=== PATIENT | female | born 1955 | race Caucasian/White ===

== ENCOUNTER → 2017-07-14 | Day surgery (SDC) | payer MEDICARE ==
[2017-07-11 11:25] LABS: BASOPHILS % 0.3 % (0.0-1.0); EOSINOPHILS # (AUTO) 0.2 (0.0-0.4); EOSINOPHILS % 3.3 % (0.0-6.0); HEMATOCRIT 39.9 % (34.2-44.1); HEMOGLOBIN 12.7 g/dL (12.0-16.0); LYMPHOCYTES # (AUTO) 1.8 (1.0-3.2); LYMPHOCYTES % 30.3 % (18.0-39.1); MEAN CORPUSCULAR HEMOGLOBIN 29.9 pg (28-32); MEAN CORPUSCULAR HGB CONC 31.8 g/dL (31-35); MEAN CORPUSCULAR VOLUME 93.9 fL (81-99); MONOCYTES # (AUTO) 0.5 (0.2-0.8); MONOCYTES % 7.9 % (4.4-11.3); NEUTROPHILS # (AUTO) 3.4 (2.1-6.9); NEUTROPHILS % 57.9 % (38.7-80.0); PLATELET COUNT 186 x10e3/uL (140-360); RED BLOOD COUNT 4.25 x10e6/uL (3.6-5.1); RED CELL DISTRIBUTION WIDTH 14.3 % (11.7-14.4)
[2017-07-11 11:42] LABS: ANION GAP 14.6 mmol/L (8-16); CALCIUM 9.3 mg/dL (8.4-10.2); CREATININE, SERUM 1.63 mg/dL (0.57-1.11); POTASSIUM 3.6 mmol/L (3.5-5.1)
--- NOTE | 2017-07-11 12:54 | Diagnostic Imaging Report ---
PROCEDURE: Frontal and lateral views of the chest. COMPARISON: Patients [facility], , CHEST 2 VIEWS, 05/30/2016, 10:15. INDICATIONS: PREOPERATIVE FOR EGD FINDINGS: Lines/tubes: Stable left upper chest Port-A-Cath with distal tip projecting at the cavoatrial junction.. Lungs: The lungs are well inflated and clear. There is no evidence of pneumonia or pulmonary edema. Pleura: There is no pleural effusion or pneumothorax. Stable eventration of the right hemidiaphragm. Heart and mediastinum: The heart and the mediastinum are normal. Bones: No acute bony abnormality. IMPRESSION: 1. No acute cardiopulmonary abnormalities. Garcia Suazo M.D. Dictated by: Garcia Suazo M.D. on 07/11/2017 at 13:03 Electronically approved by: Garcia Suazo M.D. on 07/11/2017 at 13:03
[~2017-07-14] MED LIST: ALLOPURINOL300 MG PO; AMITRIPTYLINE H50 MG PO; CALCITRIOL0.5 MCG PO; CALCIUM600 MG PO; CARAFATE1 GM PO; CARBIDOPA-LEVO1 EACH PO; CHANTIX1 MG PO; CLOPIDOGREL75 MG PO; CRESTOR20 MG PO; CYMBALTA30 MG; FENTANYL CITRATE/PF 100MCG/2 ML INJ ONE; FISH OIL500 M1 PO; FOLIC ACID-VIT1 EAC1 PO; FUROSEMIDE40 MG PO; KLOR-CON 1010 MEQ PO; LEVEMIR100 UNIT/1 SC; LEVOTHYROXINE100 MCG PO; LIDOCAINE HCL 2% LOCAL INJ 5 ML SDV VIAL INJ ONE; MAG-OXIDE400 MG PO; METOLAZONE2.5 MG PO; MIDAZOLAM HCL 2 MG/2 ML VIAL ONE; MIDODRINE HCL2.5 MG PO; MULTIVITAMINS1 EAC7 PO; NEXIUM40 MG PO; NOVOLIN R100 UNIT/1 SC; OLANZAPINE5 MG PO; PLAVIX75 MG PO; POTASSIUM CITR10 MEQ PO; PRIMIDONE50 MG PO; PROPOFOL IV EMULSION 10 MG/ML 20 ML VIAL ONE; SEROQUEL25 MG PO; SIMPONI50 MG/0.1 IM; SODIUM BICARBO650 MG PO; SUMATRIPTAN SUC50 MG PO; TIZANIDINE HCL4 MG PO; TRAZODONE HCL50 MG PO; VITAMIN D1000 UNI1 PO
== END | disposition home or self-care (01) ==
LOC: OR 07:27
PROVIDERS: ATTEND Surgery
DX: K29.70 Gastritis, unspecified, without bleeding (principal); K21.0 Gastro-esophageal reflux disease with esophagitis; K25.9 Gastric ulcer, unspecified as acute or chronic, without hemorrhage or perforation; Z98.84 Bariatric surgery status; K44.9 Diaphragmatic hernia without obstruction or gangrene; E66.9 Obesity, unspecified; M06.9 Rheumatoid arthritis, unspecified; M19.90 Unspecified osteoarthritis, unspecified site; E03.9 Hypothyroidism, unspecified; R00.1 Bradycardia, unspecified; E11.22 Type 2 diabetes mellitus with diabetic chronic kidney disease; I12.9 Hypertensive chronic kidney disease with stage 1 through stage 4 chronic kidney disease, or unspecified chronic kidney disease; N18.9 Chronic kidney disease, unspecified; F31.9 Bipolar disorder, unspecified; F41.9 Anxiety disorder, unspecified; Z01.810 Encounter for preprocedural cardiovascular examination; Z01.812 Encounter for preprocedural laboratory examination; Z01.818 Encounter for other preprocedural examination; Z79.02 Long term (current) use of antithrombotics/antiplatelets; Z79.4 Long term (current) use of insulin; Z86.73 Personal history of transient ischemic attack (TIA), and cerebral infarction without residual deficits
CPT/HCPCS: 36415 ×2; 43235; 71046; 80048; 82948; 85025; 93005; J2001; J2250

== ENCOUNTER → 2017-12-16 | Outpatient (CLI) | payer MEDICARE, OTHER ==
[~2017-12-16] MED LIST changes: -FENTANYL CITRATE/PF 100MCG/2 ML INJ ONE; -LIDOCAINE HCL 2% LOCAL INJ 5 ML SDV VIAL INJ ONE; -MIDAZOLAM HCL 2 MG/2 ML VIAL ONE; -PROPOFOL IV EMULSION 10 MG/ML 20 ML VIAL ONE
--- NOTE | 2017-12-16 08:04 | Diagnostic Imaging Report ---
PROCEDURE:ABDOMINAL ULTRASOUND COMPARISON:04/05/2017, CT abdomen and pelvis without contrast 04/06/2017. INDICATIONS:Abdomen Pain FINDINGS: Liver: 15.3 cm in length in the right midclavicular line. Normal hepatic parenchymal echogenicity. No focal mass. Main portal vein: 0.9 cm in caliber. Hepatopedal flow. Gallbladder: Surgically removed. Common Bile Duct: 0.4 cm in caliber. No echogenic filling defect. Right kidney: 8.7 cm in length. No solid or cystic mass, echogenic calculi, or hydronephrosis. Increased renal cortical echogenicity. Left kidney: 9.3 cm in length. No solid or cystic mass, echogenic calculi, or hydronephrosis. Increased renal cortical echogenicity. Spleen: 11.3 cm in length. Uniform parenchymal echotexture. Pancreas: The visualized portions of the pancreas are normal. Inferior vena cava: Patent. Aorta: Non-aneurysmal. Ascites: None. CONCLUSION: Status post cholecystectomy. Increased renal cortical echogenicity compatible with medical renal disease. Dictated by: Neo Salmon M.D. on 12/16/2017 at 8:08 Electronically approved by: Neo Salmon M.D. on 12/16/2017 at 8:08
== END ==
LOC: US 07:06
PROVIDERS: ATTEND Internal Medicine
DX: R10.9 Unspecified abdominal pain (principal)
CPT/HCPCS: 76700

== ENCOUNTER → 2018-10-26 | Outpatient (CLI) | payer MEDICARE ==
--- NOTE | 2018-10-26 10:06 | Diagnostic Imaging Report ---
EXAMINATION: MRI of the brain without contrast. HISTORY: Migraine headaches, diabetes, Parkinson's disease, bipolar, prior strokes COMPARISON: Head CT 01/24/2017 TECHNIQUE: Sagittal T2; axial DWI, T2, FLAIR, T1-IR, T2 gradient echo; coronal FLAIR. IMAGE QUALITY: Adequate. FINDINGS: Parenchyma: 1. A few scatter white matter T2 hyperintense foci, most likely age-related minimal chronic O ischemic changes mainly in the frontal lobes. Otherwise no areas of abnormal signal intensity in the brain parenchyma. 2. No mass, hemorrhage, acute or chronic infarcts. Skull: Unremarkable. Vessels: Expected flow voids present in the major arteries and dural sinuses. Extra-axial spaces: No abnormal signal intensity or mass effect. Brain volume: Within normal limits for age. Ventricles: No hydrocephalus or displacement. Foramen magnum: Unremarkable. Sella: Unremarkable. Paranasal / mastoid sinuses: Minimal mucosal inflammatory thickening and partial opacification of the left sphenoid sinus, otherwise clear IMPRESSION: 1. No acute or chronic infarct. 2. Minimal age-related chronic microvascular ischemic changes. Signed by: Dr. Roselia Roberts M.D. on 10/26/2018 10:03 AM
--- NOTE | 2018-10-26 10:12 | Diagnostic Imaging Report ---
EXAMINATION: MRI of the cervical spine without contrast HISTORY: Cervical spondylolisthesis, left-sided neck pain radiating to the left upper extremity with numbness in the left fingers COMPARISON: None available TECHNIQUE: Sagittal T1, T2, STIR; axial T2, gradient echo. FINDINGS: Curvature: Normal lordosis. Vertebrae: No evidence of neoplasm, infection, or fracture. Foramen magnum: No mass, Chiari malformation, or basilar invagination. Spinal Cord: Normal size and signal intensity. Soft Tissues: Unremarkable. Degenerative changes: C1-C2: Unremarkable. C2-C3: Facet arthrosis mainly on the left without canal or foraminal stenosis. C3-C4: Mild uncovertebral and facet arthrosis bilaterally, with minimal left foraminal narrowing. No evidence of nerve root compression. C4-C5: Mild facet arthrosis without canal or foraminal stenosis. C5-C6: Small disc osteophyte compresses formation, mild uncovertebral and facet arthrosis. Minimal left foramina narrowing. No evidence of nerve root compression. C6-C7: Small disc osteophyte formation, bilateral uncovertebral and facet arthrosis. Mild foraminal narrowing bilaterally. No evidence of nerve root compression. C7-T1: Unremarkable. IMPRESSION: 1. Mild degenerative bilateral foraminal stenoses at C6-C7. 2. Minimal degenerative foraminal narrowing on the left at C3-C4 and C5-C6 without evidence of nerve root compression. 3. Mild spondylosis at C5-C6 and C6-7 without spinal canal stenosis. Signed by: Dr. Roselia Roberts M.D. on 10/26/2018 10:08 AM
== END ==
LOC: MRI 07:04
PROVIDERS: ATTEND Internal Medicine
DX: M47.812 Spondylosis without myelopathy or radiculopathy, cervical region (principal); G43.911 Migraine, unspecified, intractable, with status migrainosus
CPT/HCPCS: 70551; 72141

== ENCOUNTER 2019-06-01 13:32 | Emergency (ER) | payer MEDICARE, OTHER ==
[~2019-06-01] VITALS: Ht 167.6 cm; Wt 109.8 kg
[2019-06-01] MEDS ORDERED: SODIUM CHLORIDE 0.9% 1000ML 1,000 ML IV STA (13:55)
[2019-06-01] MEDS ORDERED: AZITHROMYCIN 500MG/NS 250 ML 250 ML IV STA (13:55)
[2019-06-01] MEDS ORDERED: IPRATROPIUM BROMIDE 0.02% 2.5 ML NEB NEB STA (13:55)
[2019-06-01] MEDS ORDERED: SODIUM CHLORIDE 0.9% 1000ML 500 ML IV STA (13:55)
[2019-06-01] MEDS ORDERED: ALBUTEROL SULF 0.083% NEB SOLN 3 ML NEB NEB STA (13:55)
[2019-06-01] MEDS ORDERED: METHYLPREDNISOLONE SOD SUCC 125 MG/2ML VIAL IV STA (13:55)
[2019-06-01] MEDS ORDERED: CEFTRIAXONE SOD 1 GM/NS 50 ML 50 ML IV STA (13:55)
[2019-06-01] MEDS ORDERED: PREDNISONE 20 MG TAB PO NR (14:15)
[2019-06-01] MEDS ORDERED: CEFTRIAXONE SOD 1 GM VIAL ONE (14:25)
[2019-06-01 14:27] LABS: BASOPHILS % 0.3 % (0.0-1.0); EOSINOPHILS # (AUTO) 0.1 (0.0-0.4); EOSINOPHILS % 0.7 % (0.0-6.0); HEMATOCRIT 40.5 % (34.2-44.1); LYMPHOCYTES # (AUTO) 1.2 (1.0-3.2); LYMPHOCYTES % 16.5 % (18.0-39.1); MEAN CORPUSCULAR HEMOGLOBIN 30.3 pg (28-32); MEAN CORPUSCULAR HGB CONC 32.1 g/dL (31-35); MEAN CORPUSCULAR VOLUME 94.4 fL (81-99); MONOCYTES # (AUTO) 0.4 (0.2-0.8); NEUTROPHILS # (AUTO) 5.4 (2.1-6.9); NEUTROPHILS % 77.1 % (38.7-80.0); PLATELET COUNT 158 x10e3/uL (140-360); RED BLOOD COUNT 4.29 x10e6/uL (3.6-5.1); RED CELL DISTRIBUTION WIDTH 13.6 % (11.7-14.4)
[2019-06-01 14:44] LABS: ALBUMIN 3.6 g/dL (3.5-5.0); ALBUMIN/GLOBULIN RATIO 1.3 (0.8-2.0); ANION GAP 12.3 mmol/L (8-16); CALCIUM 9.4 mg/dL (8.4-10.2); CREATININE, SERUM 1.55 mg/dL (0.57-1.11); MAGNESIUM 1.9 MG/DL (1.3-2.1); POTASSIUM 3.3 mmol/L (3.5-5.1)
[2019-06-01 14:50] LABS: CREATINE KINASE MB 1.8 ng/mL (0-5.0)
[2019-06-01 15:42] LABS: CLARITY,URINE SL CLOUDY (CLEAR); COLOR,URINE YELLOW (YELLOW); NITRITE,URINE NEGATIVE (NEGATIVE); PROTEIN,URINE DIPSTICK NEGATIVE (NEGATIVE)
[2019-06-01 15:43] LABS: BILIRUBIN,URINE NEGATIVE (NEGATIVE); KETONES,URINE NEGATIVE (NEGATIVE); LEUKOCYTE ESTERASE ,URINE NEGATIVE (NEGATIVE); URINE UROBILINOGEN 0.2 mg/dL (0.2 - 1)
[2019-06-01] MEDS ORDERED: POTASSIUM CHLORIDE 20 MEQ TAB CR PO STA (16:07)
--- NOTE | 2019-06-01 16:11 | Diagnostic Imaging Report ---
EXAMINATION: PA and lateral views of the chest. COMPARISON: Chest 2 views 08/11/2017 CLINICAL HISTORY: Bronchitis for 2 weeks, shortness of breath, no chest pain DISCUSSION: Lines/tubes: Right upper chest Port-A-Cath, with catheter distal tip projecting in the mid SVC. Lungs: The lungs are well inflated and clear. There is no evidence of pneumonia or pulmonary edema. Pleura: There is no pleural effusion or pneumothorax. Heart and mediastinum: Cardiomediastinal silhouette is unremarkable. Pulmonary vasculature is normal. Bones and soft tissues: No acute bony abnormalities. IMPRESSION: No acute cardiopulmonary abnormalities. Signed by: Dr. Garcia Suazo M.D. on 06/01/2019 4:08 PM
== END 2019-06-01 17:00 | disposition home or self-care (01) ==
LOC: ER 13:42
DX: O99.512 Diseases of the respiratory system complicating pregnancy, second trimester (principal); Z3A.14 14 weeks gestation of pregnancy; J42 Unspecified chronic bronchitis; O99.332 Smoking (tobacco) complicating pregnancy, second trimester; Z88.5 Allergy status to narcotic agent; Z88.2 Allergy status to sulfonamides
CPT/HCPCS: 36415; 71046; 80053; 81001; 82550; 82553; 83735; 83880; 84484; 85025; 87040; 87086; 87400; 99284; J0456; J0696 ×2; J2930; J7030; J7512

== ENCOUNTER 2024-10-07 12:27 | Emergency (ER) | payer MEDICARE ==
[~2024-10-07] VITALS: Ht 167.6 cm; Wt 92.1 kg
[~2024-10-07 12:27] MED LIST changes: +ALBUTEROL2.5 MG/0.5 PO; +BENZONATATE200 MG PO; +DOXYCYCLINE HY100 MG PO; +PREDNISONE20 MG PO; +PREDNISONE50 MG PO
[2024-10-07 12:33] VITALS: TEMP 97.8
[2024-10-07] MEDS: SODIUM CHLORIDE 0.9% 1000ML 1,000 ML IV STA (12:48)
[2024-10-07] MEDS: ONDANSETRON HCL INJ 2MG/ML 2ML 2 MG/ML VIAL IV PRN (12:51)
[2024-10-07 12:52] LABS: BASOPHILS % 0.1 % (0.0-1.0); EOSINOPHILS % 0.4 % (0.0-6.0); HEMATOCRIT 34.8 % (34.2-44.1); HEMOGLOBIN 11.7 g/dL (12.0-16.0); LYMPHOCYTES # (AUTO) 0.6 (1.0-3.2); LYMPHOCYTES % 8.4 % (18.0-39.1); MEAN CORPUSCULAR HEMOGLOBIN 28.3 pg (28-32); MEAN CORPUSCULAR HGB CONC 33.6 g/dL (31-35); MEAN CORPUSCULAR VOLUME 84.3 fL (81-99); MONOCYTES # (AUTO) 0.4 (0.2-0.8); MONOCYTES % 5.2 % (4.4-11.3); NEUTROPHILS # (AUTO) 5.7 (2.1-6.9); NEUTROPHILS % 85.5 % (38.7-80.0); PLATELET COUNT 182 x10e3/uL (140-360); RED BLOOD COUNT 4.13 x10e6/uL (3.6-5.1); RED CELL DISTRIBUTION WIDTH 15.9 % (11.7-14.4); WHITE BLOOD COUNT 6.67 x10e3/uL (4.8-10.8)
[2024-10-07] MEDS: DICYCLOMINE HCL 20 MG/2 ML VIAL IM ONE (13:12)
[2024-10-07 13:14] LABS: ALBUMIN 2.4 g/dL (3.5-5.0); ALBUMIN/GLOBULIN RATIO 0.8 (0.8-2.0); ALKALINE PHOSPHATASE 130 IU/L (40-150); ANION GAP 16.7 mmol/L (8-16); BILIRUBIN,TOTAL 0.7 mg/dL (0.2-1.2); BLOOD UREA NITROGEN 12 mg/dL (7-26); BUN/CREATININE RATIO 9 (6-25); CALCIUM 7.5 mg/dL (8.4-10.2); CARBON DIOXIDE 22 mmol/L (22-29); CHLORIDE 104 mmol/L (98-107); CREATININE, SERUM 1.39 mg/dL (0.57-1.11); EST GLOMERULAR FILTRATION RATE 41 ML/MIN (>=60); GLUCOSE 110 mg/dL (74-118); LIPASE 26 U/L (8-78); SODIUM 140 mmol/L (136-145); TOTAL PROTEIN 5.4 g/dL (6.5-8.1)
[2024-10-07 13:16] LABS: ALANINE AMINOTRANSFERASE < 6 IU/L (0-55)
[2024-10-07 13:19] LABS: POTASSIUM 2.7 mmol/L (3.5-5.1)
[2024-10-07] MEDS ORDERED: POTASSIUM CHLORIDE 10MEQ/100ML 100 ML IV ONE (13:30)
[2024-10-07] MEDS ORDERED: IOPAMIDOL 370 MG/ML 100 ML INFUS..BTL INJ ONE (13:35)
[2024-10-07] MEDS: KCL 20MEQ/.9 SOD CHL 1,000 ML IV STA (13:54)
[2024-10-07] MEDS: POTASSIUM CHLORIDE 20 MEQ TAB CR PO STA (13:55)
[2024-10-07 14:24] LABS: BILIRUBIN,URINE NEGATIVE (NEGATIVE); CLARITY,URINE SL CLOUDY (CLEAR); COLOR,URINE YELLOW (YELLOW); GLUCOSE, URINE NEGATIVE (NEGATIVE); KETONES,URINE NEGATIVE (NEGATIVE); LEUKOCYTE ESTERASE ,URINE NEGATIVE (NEGATIVE); NITRITE,URINE NEGATIVE (NEGATIVE); PH,URINE 7 (5 - 7); PROTEIN,URINE DIPSTICK NEGATIVE (NEGATIVE); URINE UROBILINOGEN 0.2 mg/dL (0.2 - 1)
[2024-10-07 14:35] LABS: BACTERIA,URINE MODERATE /HPF; EPITHELIAL CELLS,URINE FEW /LPF; RBC,URINE 0-5 /HPF (0-5); WBC,URINE (MAN) 0-5 /HPF (0-5)
[2024-10-07] MEDS ORDERED: CEFDINIR300 MG PO (14:53)
[2024-10-07] MEDS ORDERED: DICYCLOMINE HCL20 MG PO (14:53)
[2024-10-07 15:45] VITALS: PULSE 60; RESP 16; O2SAT 100
== END 2024-10-07 16:07 | disposition home or self-care (01) ==
LOC: ER 12:41
DX: R11.2 Nausea with vomiting, unspecified (principal); N39.0 Urinary tract infection, site not specified; R19.7 Diarrhea, unspecified; R10.30 Lower abdominal pain, unspecified; E11.22 Type 2 diabetes mellitus with diabetic chronic kidney disease; G20.A1 Parkinson's disease without dyskinesia, without mention of fluctuations; M06.9 Rheumatoid arthritis, unspecified; M54.9 Dorsalgia, unspecified; G89.29 Other chronic pain; F41.9 Anxiety disorder, unspecified; F32.A Depression, unspecified; Z86.73 Personal history of transient ischemic attack (TIA), and cerebral infarction without residual deficits; Z98.84 Bariatric surgery status
CPT/HCPCS: 36415; 74177; 80053; 81001; 83690; 85025; 99285; J0500; J2405; J2470; J7030; Q9967